=== PATIENT | male | born 1995 | race Caucasian/White ===

== ENCOUNTER 2017-12-13 14:37 | Emergency (ER) | payer SELFPAY ==
[~2017-12-13] VITALS: Ht 177.8 cm; Wt 60.3 kg
[~2017-12-13 14:37] MED LIST: CEPHALEXIN500 M1 PO
== END 2017-12-13 18:44 | disposition left against medical advice (07) ==
LOC: ED 14:37
DX: S62.021A Displaced fracture of middle third of navicular [scaphoid] bone of right wrist, initial encounter for closed fracture (principal); X58.XXXA Exposure to other specified factors, initial encounter; Y93.89 Activity, other specified; Y92.89 Other specified places as the place of occurrence of the external cause; Y99.8 Other external cause status